=== PATIENT | male | born 1980 | race Caucasian/White ===

== ENCOUNTER 2019-08-11 15:05 | Inpatient (IN) | payer OTHER ==
[2019-08-11 15:32] VITALS: BMI 28.0
--- NOTE | 2019-08-11 15:57 | HP ---
COWS - Scale Resting Pulse: 0= [place] 80 or Below Sweatin= No chills or Flushing Restless Observation: 0= Sits Still Pupil Size: 0= Normal to Room Light Bone or Joint Aches: 0= None Runny Nose/ Eye Tearin= None GI Upset > 30mins: 0= None Tremor Observation: 0= None Yawning Observation: 0= None Anxiety or Irritability: 0= None Goose Flesh Skin: 0=Smooth Skin COWS Score: 0 CIWA Score - Admission Criteria OASAS Guidelines: Admission for Medically Managed Detox: Requires at least one of the followin. CIWA greater than 12 2. Seizures within the past 24 hours 3. Delirium tremens within the past 24 hours 4. Hallucinations within the past 24 hours 5. Acute intervention needed for co occurring medical disorder 6. Acute intervention needed for co occurring psychiatric disorder 7. Severe withdrawal that cannot be handled at a lower level of care (continued vomiting, continued diarrhea, abnormal vital signs) requiring intravenous medication and/or fluids 8. Admitting History and Physical - Admission Chief Complaint: "I want to learn how help myself and not be my worst enemy and stop being self-destructive." History of Present Illness: 39 year old male with history of heroin use and crack/cocaine use disorder. One week ago he overdose on 1 bag of heroin which he mixed with crystal meth. He is using up to $200 per day of crack and cocaine. S/P residential released 2017 and released from [facility] 07/2019. All: Keflex He has poor insight, is homeless, needs supportive environment, has poor judgment and needs intensive counseling services. He needs the supportive environment of a rehab setting. PMH: None Psurg: None Psych: Depression, Bipolar and PTSD. History Source: Patient Limitations to Obtaining History: No Limitations - Smoking History Smoking history: Current every day smoker Aproximately how many cigarettes per day: 10 Admission ROS S - HPI Allergies/Adverse Reactions: Allergies Allergy/AdvReac Type Severity Reaction Status Date / Time cephalexin [From Keflex] Allergy Severe Verified 08/11/19 15:41 Exam Limitations: No Limitations - Ebola screening Have you traveled outside of the country in the last 21 days: No Have you had contact with anyone from an Ebola affected area: No Have you been sick,other than usual withdrawal symptoms: No Do you have a fever: No - Review of Systems Constitutional: No Symptoms Reported EENT: reports: No Symptoms Reported Respiratory: reports: No Symptoms reported Cardiac: reports: No Symptoms Reported GI: reports: No Symptoms Reported : reports: No Symptoms Reported Musculoskeletal: reports: No Symptoms Reported Integumentary: reports: No Symptoms Reported Neuro: reports: No Symptoms reported Endocrine: reports: No Symptoms Reported Hematology: reports: No Symptoms Reported Psychiatric: reports: Judgement Intact, Mood/Affect Appropiate, Orientated x3 Patient History - Patient Medical History Hx Asthma: Yes (Pt is on MDI) Hx Chronic Obstructive Pulmonary Disease (COPD): No Hx Cardiac Disorders: No Hx Hypertension: No Hx Seizures: No Hx Diabetes: No Hx Gastrointestinal Disorders: No Hx Genitourinary Disorders: No Hx Sexually Transmitted Disorders: No Hx Renal Disease (ESRD): No Hx Depression: Yes Hx Suicide Attempt: Yes (Pt swallowed a razor blade 6 yrs ago.) Hx Schizophrenia: No - Patient Surgical History Past Surgical History: Yes Hx Genitourinary Surgery: Yes (Sx for urethral stricture) Other Surgical History: Pt had sx Anesthesia Reaction: No - PPD History Previous Implant?: Yes Documented Results: Negative w/o proof Implanted On Prior R Admission?: No - Smoking Cessation Smoking history: Current every day smoker Aproximately how many cigarettes per day: 10 Hx Chewing Tobacco Use: No Initiated information on smoking cessation: Yes 'Breaking Loose' booklet given: 08/11/19 - Substances abused Cocaine Substance route: Injection Frequency: Daily Amount used: 2 grams Age of first use: 15 Date of last use: 08/08/19 Crack Substance route: Smoking Frequency: Daily Amount used: $300 Age of first use: 15 Date of last use: 08/08/19 Heroin Substance route: Injection Frequency: Daily Amount used: 1-2 bags Age of first use: 15 Date of last use: 08/06/19 Admission Physical Exam BHS - Vital Signs Vital Signs: Vital Signs - 24 hr 08/11/19 15:19 Temperature 97.1 F L Pulse Rate 85 Respiratory 18 Rate Blood Pressure 151/86 - Physical General Appearance: Yes: No Apparent Distress, Nourished, Appropriately Dressed HEENTM: Yes: EOMI, Hearing grossly Normal, Normal ENT Inspection, Normocephalic , Normal Voice, CARMENZA, Pharynx Normal, Tm's normal Respiratory: Yes: Chest Non-Tender, Lungs Clear, Normal Breath Sounds, No Respiratory Distress, No Accessory Muscle Use Neck: Yes: No masses,lesions,Nodules, Supple, Trachea in good position Breast: Yes: Within Normal Limits Cardiology: Yes: Regular Rhythm, Regular Rate, S1, S2 Abdominal: Yes: Normal Bowel Sounds, Non Tender, Flat, Soft Genitourinary: Yes: Within Normal Limits Back: Yes: Normal Inspection Musculoskeletal: Yes: full range of Motion, Gait Steady, Pelvis Stable Extremities: Yes: Normal Capillary Refill, Normal Inspection Neurological: Yes: crew member II-XII NML intact, Fully Oriented, Alert, Motor Strength 5/5, Normal Mood/Affect, Normal Response Integumentary: Yes: Normal Color, Warm Lymphatic: Yes: Within Normal Limits - Diagnostic (1) Opioid dependence Current Visit: Yes Status: Acute (2) Cocaine use disorder Current Visit: Yes Status: Acute Cleared for Admission S - Detox or Rehab [facility] Level of Care: Medically Supervised Detox Regimen/Protocol: Not Applicable Claeared for Rehab Admission: Yes Screened but not Admitted - Documentation of Visit Screened but not Admitted: No Breathalyzer - Breathalyzer Breathalyzer: 0 Urine Drug Screen - Test Device Lot number: [id number] Expiration date: 06/03/21 - Control Is test valid?: Yes - Results Drug screen NEGATIVE: No Urine drug screen results: JASON-Cocaine, BUP-Suboxone Inpatient Rehab Admission - Rehab Decision to Admit Inpatient rehab admission?: Yes - Initial Determination Are CD services needed?: Yes Free of communicable disease: Yes Not in need of hospitalization: Yes - Rehab Admission Criteria Previous failed treatment: Yes Poor recovery environment: Yes Comorbidities: Yes Lacks judgement: Yes Patient is meeting Inpatient Rehab admission criteria:: Yes
[2019-08-11] MEDS ORDERED: MAGNESIUM HYDROX 2400MG/30ML ORAL SUSPENSION 30 ML CUP PO PRN (15:59)
[2019-08-11] MEDS ORDERED: MAGNESIUM CITRATE 300 ML BOTTLE PO PRN (15:59)
[2019-08-11] MEDS ORDERED: MENTHOL/PHENOL 1 EACH UD MM PRN (15:59)
[2019-08-11] MEDS ORDERED: ACETAMINOPHEN 325 MG TABLET (FP) PO PRN (15:59)
[2019-08-11] MEDS ORDERED: P-EPHED 60MG/TRIPROLIDI 2.5MG TABLET PO PRN (15:59)
[2019-08-11] MEDS ORDERED: LOPERAMIDE HCL 2 MG CAPSULE PO PRN (15:59)
[2019-08-11] MEDS ORDERED: IBUPROFEN 400 MG TABLET (FP) PO PRN (15:59)
[2019-08-11] MEDS ORDERED: guaiFENesin 200 MG/10 ML 10 ML UNIT-DOSE CUPS PO PRN (15:59)
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
[2019-08-11] MEDS: THIAMINE HCL 100 MG TABLET (FP) PO SCH (21:42)
[2019-08-11] MEDS: MELATONIN 5 MG TABLETS PO PRN (21:42)
[2019-08-12 09:53] LABS: HEMOGLOBIN 15.5 GM/dL (11.7-16.9); MCH 29.9 pg (25.7-33.7); MCHC 34.4 g/dl (32.0-35.9); MEAN PLT VOLUME 7.6 fl (7.5-11.1); PLATELET COUNT 374 K/MM3 (134-434); RBC 5.18 M/mm3 (4.00-5.60); RDW 13.3 % (11.9-15.9); WHITE BLOOD COUNT 8.4 K/mm3 (4.0-10.0)
[2019-08-12] MEDS: PRENATAL VITAMINS W/ FOLIC ACID TABLET (FP) PO SCH (09:57)
[2019-08-12] MEDS: ARIPiprazole 10 MG TABLET PO SCH (09:57)
[2019-08-12] MEDS: FLUoxetine HCL 20 MG CAPSULE PO SCH (09:57)
[2019-08-12 10:03] LABS: ALBUMIN 3.6 g/dl (3.4-5.0); BILIRUBIN,TOTAL 0.3 mg/dL (0.2-1); BLOOD UREA NITROGEN 14.7 mg/dL (7-18); CALCIUM 8.6 mg/dL (8.5-10.1); POTASSIUM 4.7 mmol/L (3.5-5.1); TOT PROT 6.7 g/dl (6.4-8.2)
[2019-08-12 20:51] LABS: URINE APPEARANCE CLEAR; URINE BILIRUBIN NEGATIVE (NEGATIVE); URINE COLOR YELLOW; URINE GLUCOSE (UA) NEGATIVE (NEGATIVE); URINE KETONE TRACE (NEGATIVE); URINE LEUK ESTERASE NEGATIVE (NEGATIVE); URINE NITRITE NEGATIVE (NEGATIVE); URINE PROTEIN NEGATIVE (NEGATIVE); URINE UROBILINOGEN 0.2 mg/dL (0.2-1.0)
[2019-08-12] MEDS: THIAMINE HCL 100 MG TABLET (FP) PO SCH (21:11)
[2019-08-13] MEDS: ARIPiprazole 10 MG TABLET PO SCH (09:40)
[2019-08-13] MEDS: PRENATAL VITAMINS W/ FOLIC ACID TABLET (FP) PO SCH (09:40)
[2019-08-13] MEDS: FLUoxetine HCL 20 MG CAPSULE PO SCH (09:40)
[2019-08-13] MEDS: THIAMINE HCL 100 MG TABLET (FP) PO SCH (21:08)
[2019-08-13] MEDS: MELATONIN 5 MG TABLETS PO PRN (21:08)
[2019-08-14] MEDS: PRENATAL VITAMINS W/ FOLIC ACID TABLET (FP) PO SCH (10:35)
[2019-08-14] MEDS: FLUoxetine HCL 20 MG CAPSULE PO SCH ×2 (10:35→21:00)
[2019-08-14] MEDS: ARIPiprazole 10 MG TABLET PO SCH ×2 (10:35→21:00)
--- NOTE | 2019-08-14 10:56 | PN ---
[facility] Progress Note Note: Patient is currently on Abiify 10 mg/day and Prozac 20 mg/day. he requests to take both medications at bedtime. Therefore Prozac and Abilify schedule is switched to HS
[2019-08-14] MEDS: THIAMINE HCL 100 MG TABLET (FP) PO SCH (21:00)
[2019-08-15] MEDS: PRENATAL VITAMINS W/ FOLIC ACID TABLET (FP) PO SCH (10:37)
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
--- NOTE | 2019-08-15 12:17 | PN ---
[facility] COWS - Scale Resting Pulse: 0= [place] 80 or Below Sweatin=Flushed/Facial Moisture Restless Observation: 0= Sits Still Pupil Size: 0= Normal to Room Light Bone or Joint Aches: 1= Mild Discomfort Runny Nose/ Eye Tearin= Runny Nose/Eyes GI Upset > 30mins: 0= None Tremor Observation of Outstretched Hands: 0= None Yawning Observation: 0= None Anxiety or Irritability: 1=Feels Anxious/Irritable Goose Flesh Skin: 0=Smooth Skin COWS Score: 6 BHS Progress Note (SOAP) Subjective: Pt c/o withdrawals from suboxone x 2 weeks. Pt states he was buying it on the street after his insurance was cut off. afraid did not want to OD like he did in the bathroom of his [facility] sometime ago after using heroin laced with Fentanyl. Reports hot and cold chills, nasal congestions/runny nose. Below is verification from [employer]: Others' Prescriptions Patient Name: Jose Lo Date: 1980 Address: [address] [address] Sex: Male Rx Written Rx Dispensed Drug Quantity Days Supply Prescriber Name 01/24/2019 01/24/2019 suboxone 8 mg-2 mg sl film 90 30 Wild Villar ([place]) 11/01/2018 11/02/2018 suboxone 8 mg-2 mg sl film 42 14 Wild Villar ([place]) 10/18/2018 10/18/2018 dextroamp-amphetamin 10 mg tab 60 30 Elzbieta Garcia MD 10/18/2018 10/18/2018 suboxone 8 mg-2 mg sl film 42 14 Wild Villar ([place]) 09/20/2018 09/20/2018 suboxone 8 mg-2 mg sl film 90 30 Wild Villar (RAJI) 09/09/2018 09/09/2018 suboxone 8 mg-2 mg sl film 30 10 Vance Bautista MD Patient Name: Jose Lo Date: 1980 Address: [address], [place] [address] Sex: Male Rx Written Rx Dispensed Drug Quantity Days Supply Prescriber Name 09/07/2018 09/08/2018 suboxone 8 mg-2 mg sl film 3 1 Michele Schaefer F () * - Drugs marked with an asterisk are compound drugs. If the compound drug is made up of more than one controlled substance, then each controlled substa Objective: 08/15/19 12:22 Vital Signs - 24 hr 08/15/19 08/15/19 08/15/19 00:30 03:30 06:48 Temperature 97.6 F Pulse Rate 75 Respiratory 18 18 18 Rate Blood Pressure 120/76 Assessment: 08/15/19 12:22 CESAR Pt with hx of Suboxone treatment wants to restart Plan: D/w pt's counselor Ms He Velasoc who has seen pt and is arranging for pt to follow up with CD aftercare as well as Suboxone-MAT at [facility] program. Repeat UDS today consider restarting Suboxone with 2 mg/0.1mg s/l first dose x 1 now Re-evaluate and build up suboxone dose as approriate. Give suboxone 4 mg/1 mg sl BID starting tomorrow. Pt is agreeable to poc
[2019-08-15] MEDS ORDERED: BUPRENORPHINE/NALOXONE 2 MG/0.5 MG FILM PACKET SL ONE ×2 (14:00→18:00)
[2019-08-15] MEDS: ARIPiprazole 10 MG TABLET PO SCH (21:41)
[2019-08-15] MEDS: FLUoxetine HCL 20 MG CAPSULE PO SCH (21:41)
[2019-08-15] MEDS: THIAMINE HCL 100 MG TABLET (FP) PO SCH (21:42)
[2019-08-16] MEDS: BUPRENORPHINE/NALOXONE 4 MG/1 MG FILM PACKET SL SCH ×2 (06:05→17:09)
[2019-08-16] MEDS: PRENATAL VITAMINS W/ FOLIC ACID TABLET (FP) PO SCH (10:27)
[2019-08-16] MEDS: FLUoxetine HCL 20 MG CAPSULE PO SCH (21:10)
[2019-08-16] MEDS: ARIPiprazole 10 MG TABLET PO SCH (21:10)
[2019-08-16] MEDS: THIAMINE HCL 100 MG TABLET (FP) PO SCH (21:10)
[2019-08-17] MEDS: BUPRENORPHINE/NALOXONE 4 MG/1 MG FILM PACKET SL SCH ×2 (06:04→17:36)
[2019-08-17] MEDS: PRENATAL VITAMINS W/ FOLIC ACID TABLET (FP) PO SCH (09:37)
[2019-08-17] MEDS: ARIPiprazole 10 MG TABLET PO SCH (21:23)
[2019-08-17] MEDS: FLUoxetine HCL 20 MG CAPSULE PO SCH (21:23)
[2019-08-17] MEDS: THIAMINE HCL 100 MG TABLET (FP) PO SCH (21:23)
[2019-08-18] MEDS: BUPRENORPHINE/NALOXONE 4 MG/1 MG FILM PACKET SL SCH ×2 (06:05→17:43)
[2019-08-18] MEDS: PRENATAL VITAMINS W/ FOLIC ACID TABLET (FP) PO SCH (09:39)
[2019-08-18] MEDS ORDERED: TUBERCULIN PPD 5 TU/0.1ML VIAL ID ONE (18:09)
[2019-08-18] MEDS: ARIPiprazole 10 MG TABLET PO SCH (21:06)
[2019-08-18] MEDS: FLUoxetine HCL 20 MG CAPSULE PO SCH (21:06)
[2019-08-18] MEDS: THIAMINE HCL 100 MG TABLET (FP) PO SCH (21:06)
--- NOTE | 2019-08-18 22:55 | PN ---
[facility] Progress Note Note: Pt c/o painful sores inside nasal passage. Vital Signs - 24 hr 08/18/19 08/18/19 00:30 07:08 Temperature 97.6 F Pulse Rate 75 Respiratory 18 18 Rate Blood Pressure 123/70 Alert o x 3 nad oob ambulating with steady gait Nose:external, free of lesions;nasal passage, pink mm. A/P cold sores Saline spray as directed Bacitracin ointment apply as directed
[2019-08-18] MEDS ORDERED: SODIUM CHLORIDE NASAL SPRAY 44 ML BOTTLE NS PRN (22:56)
[2019-08-19] MEDS: BUPRENORPHINE/NALOXONE 4 MG/1 MG FILM PACKET SL SCH ×2 (06:00→17:51)
[2019-08-19] MEDS: BACITRACIN 15 GM TUBE TOPICAL OINTMENT TP SCH ×2 (10:07→21:47)
[2019-08-19] MEDS: PRENATAL VITAMINS W/ FOLIC ACID TABLET (FP) PO SCH (10:08)
[2019-08-19] MEDS: ARIPiprazole 10 MG TABLET PO SCH (21:47)
[2019-08-19] MEDS: FLUoxetine HCL 20 MG CAPSULE PO SCH (21:47)
[2019-08-19] MEDS: THIAMINE HCL 100 MG TABLET (FP) PO SCH (21:47)
[2019-08-20] MEDS: BUPRENORPHINE/NALOXONE 4 MG/1 MG FILM PACKET SL SCH ×2 (06:05→17:48)
[2019-08-20] MEDS: PRENATAL VITAMINS W/ FOLIC ACID TABLET (FP) PO SCH (10:25)
[2019-08-20] MEDS: BACITRACIN 15 GM TUBE TOPICAL OINTMENT TP SCH ×2 (10:25→21:05)
[2019-08-20] MEDS: ARIPiprazole 10 MG TABLET PO SCH (21:04)
[2019-08-20] MEDS: FLUoxetine HCL 20 MG CAPSULE PO SCH (21:04)
[2019-08-20] MEDS: THIAMINE HCL 100 MG TABLET (FP) PO SCH (21:05)
[2019-08-21] MEDS: BUPRENORPHINE/NALOXONE 4 MG/1 MG FILM PACKET SL SCH ×2 (06:09→17:50)
[2019-08-21] MEDS: PRENATAL VITAMINS W/ FOLIC ACID TABLET (FP) PO SCH (09:32)
[2019-08-21] MEDS: BACITRACIN 15 GM TUBE TOPICAL OINTMENT TP SCH ×2 (09:32→21:11)
[2019-08-21] MEDS: ARIPiprazole 10 MG TABLET PO SCH (21:11)
[2019-08-21] MEDS: FLUoxetine HCL 20 MG CAPSULE PO SCH (21:11)
[2019-08-21] MEDS: THIAMINE HCL 100 MG TABLET (FP) PO SCH (21:11)
[2019-08-22] MEDS ORDERED: BUPRENORPHINE/NALOXONE 2 MG/0.5 MG FILM PACKET SL SCH (06:35)
[2019-08-22] MEDS: BUPRENORPHINE/NALOXONE 4 MG/1 MG FILM PACKET SL SCH ×2 (06:44→18:05)
[2019-08-22] MEDS: BACITRACIN 15 GM TUBE TOPICAL OINTMENT TP SCH ×2 (11:00→22:18)
[2019-08-22] MEDS: PRENATAL VITAMINS W/ FOLIC ACID TABLET (FP) PO SCH (11:00)
[2019-08-22] MEDS: MAG HYDROX/AL HYDROX/SIMETH 30 ML UNIT-DOSE CUP PO PRN ×2 (12:21→22:18)
[2019-08-22] MEDS: FLUoxetine HCL 20 MG CAPSULE PO SCH (21:14)
[2019-08-22] MEDS: ARIPiprazole 10 MG TABLET PO SCH (21:14)
[2019-08-22] MEDS: THIAMINE HCL 100 MG TABLET (FP) PO SCH (21:15)
[2019-08-23] MEDS: MAG HYDROX/AL HYDROX/SIMETH 30 ML UNIT-DOSE CUP PO PRN (05:08)
[2019-08-23] MEDS: BUPRENORPHINE/NALOXONE 4 MG/1 MG FILM PACKET SL SCH ×2 (06:08→17:37)
[2019-08-23] MEDS: BACITRACIN 15 GM TUBE TOPICAL OINTMENT TP SCH ×2 (10:12→21:22)
[2019-08-23] MEDS: PRENATAL VITAMINS W/ FOLIC ACID TABLET (FP) PO SCH (10:12)
--- NOTE | 2019-08-23 10:41 | PN ---
[facility] Progress Note Note: nurse Dayami reports that this pt c/o n/v last night but no vomit observed. Vital Signs - 24 hr 08/23/19 06:45 Temperature 97.8 F Pulse Rate 76 Respiratory 18 Rate Blood Pressure 128/69 Zofran 8mg ODT Q8H prn for nausea or vomiting.
[2019-08-23] MEDS: FLUoxetine HCL 20 MG CAPSULE PO SCH (21:22)
[2019-08-23] MEDS: ARIPiprazole 10 MG TABLET PO SCH (21:22)
[2019-08-23] MEDS: THIAMINE HCL 100 MG TABLET (FP) PO SCH (21:22)
[2019-08-23] MEDS: ONDANSETRON *ODT* 4 MG TABLET SL PRN (21:29)
[2019-08-24] MEDS: BUPRENORPHINE/NALOXONE 4 MG/1 MG FILM PACKET SL SCH ×2 (07:20→17:30)
[2019-08-24] MEDS: PRENATAL VITAMINS W/ FOLIC ACID TABLET (FP) PO SCH (10:00)
[2019-08-24] MEDS: BACITRACIN 15 GM TUBE TOPICAL OINTMENT TP SCH ×2 (10:00→22:25)
[2019-08-24] MEDS: FLUoxetine HCL 20 MG CAPSULE PO SCH (21:12)
[2019-08-24] MEDS: ARIPiprazole 10 MG TABLET PO SCH (21:12)
[2019-08-24] MEDS: THIAMINE HCL 100 MG TABLET (FP) PO SCH (22:26)
[2019-08-25] MEDS: BUPRENORPHINE/NALOXONE 4 MG/1 MG FILM PACKET SL SCH (08:03)
[2019-08-25] MEDS: BACITRACIN 15 GM TUBE TOPICAL OINTMENT TP SCH ×2 (10:17→21:08)
[2019-08-25] MEDS: PRENATAL VITAMINS W/ FOLIC ACID TABLET (FP) PO SCH (10:17)
--- NOTE | 2019-08-25 11:08 | PN ---
[facility] Progress Note Note: Pt Refused to take his scheduled Suboxone dose this morning stating that he wants to get off of everything, "be clean when I leave here and "was not actively using heroin before coming here". Reports today that he "bought 8 mg subox[address] on the streets to edge off" and does not want to continue Suboxone MAT. Declined a taper to 2 mg/0.5 mg stating "I've been on 24 mg daily when i was in long term and got off suboxone with no problem". "Just discontinue it". Vital Signs - 24 hr 08/25/19 08/25/19 08/25/19 00:30 03:30 07:02 Temperature 97.7 F Pulse Rate 73 Respiratory 18 18 18 Rate Blood Pressure 127/73 Laboratory Tests 08/12/19 08/12/19 08/12/19 07:30 07:30 07:30 WBC 8.4 RBC 5.18 Hgb 15.5 Hct 45.0 MCV 87.0 MCH 29.9 MCHC 34.4 RDW 13.3 Plt Count 374 MPV 7.6 Sodium 139 Potassium 4.7 Chloride 105 Carbon Dioxide 32 Anion Gap 2 L BUN 14.7 Creatinine 1.0 Est GFR (CKD-EPI)AfAm 110.17 Est GFR (CKD-EPI)NonAf 95.05 Random Glucose 87 Calcium 8.6 Total Bilirubin 0.3 AST 12 L ALT 23 Alkaline Phosphatase 113 Total Protein 6.7 Albumin 3.6 Urine Color Urine Appearance Urine pH Ur Specific [place] Urine Protein Urine Glucose (UA) Urine Ketones Urine Blood Urine Nitrite Urine Bilirubin Urine Urobilinogen Ur Leukocyte Esterase RPR Titer Nonreactive 08/12/19 11:50 WBC RBC Hgb Hct MCV MCH MCHC RDW Plt Count MPV Sodium Potassium Chloride Carbon Dioxide Anion Gap BUN Creatinine Est GFR (CKD-EPI)AfAm Est GFR (CKD-EPI)NonAf Random Glucose Calcium Total Bilirubin AST ALT Alkaline Phosphatase Total Protein Albumin Urine Color Yellow Urine Appearance Clear Urine pH 5.0 Ur Specific [place] 1.029 Urine Protein Negative Urine Glucose (UA) Negative Urine Ketones Trace H Urine Blood Negative Urine Nitrite Negative Urine Bilirubin Negative Urine Urobilinogen 0.2 Ur Leukocyte Esterase Negative RPR Titer Alert o x 3 nad oob ambulating with steady gait A/P pt declined to continue Suboxone MAT. D/C Suboxone 4 mg/1mg sl BID per pt's request.
[2019-08-25] MEDS: FLUoxetine HCL 20 MG CAPSULE PO SCH (21:07)
[2019-08-25] MEDS: ARIPiprazole 10 MG TABLET PO SCH (21:07)
[2019-08-25] MEDS: THIAMINE HCL 100 MG TABLET (FP) PO SCH (21:08)
[2019-08-26] MEDS: MAG HYDROX/AL HYDROX/SIMETH 30 ML UNIT-DOSE CUP PO PRN ×2 (00:44→17:36)
[2019-08-26] MEDS: ONDANSETRON *ODT* 4 MG TABLET SL PRN (06:28)
[2019-08-26] MEDS: PRENATAL VITAMINS W/ FOLIC ACID TABLET (FP) PO SCH (09:51)
[2019-08-26] MEDS: BACITRACIN 15 GM TUBE TOPICAL OINTMENT TP SCH ×2 (09:51→21:12)
[2019-08-26] MEDS: THIAMINE HCL 100 MG TABLET (FP) PO SCH (21:11)
[2019-08-26] MEDS: ARIPiprazole 10 MG TABLET PO SCH (21:12)
[2019-08-26] MEDS: FLUoxetine HCL 20 MG CAPSULE PO SCH (21:12)
[2019-08-27] MEDS: BACITRACIN 15 GM TUBE TOPICAL OINTMENT TP SCH ×2 (09:33→23:17)
[2019-08-27] MEDS: PRENATAL VITAMINS W/ FOLIC ACID TABLET (FP) PO SCH (09:33)
[2019-08-27] MEDS: FLUoxetine HCL 20 MG CAPSULE PO SCH (21:23)
[2019-08-27] MEDS: THIAMINE HCL 100 MG TABLET (FP) PO SCH (21:23)
[2019-08-27] MEDS: ARIPiprazole 10 MG TABLET PO SCH (21:23)
[2019-08-28] MEDS: PRENATAL VITAMINS W/ FOLIC ACID TABLET (FP) PO SCH (12:30)
[2019-08-28] MEDS: BACITRACIN 15 GM TUBE TOPICAL OINTMENT TP SCH ×2 (12:30→21:07)
[2019-08-28] MEDS: ARIPiprazole 10 MG TABLET PO SCH (21:06)
[2019-08-28] MEDS: FLUoxetine HCL 20 MG CAPSULE PO SCH (21:07)
[2019-08-28] MEDS: THIAMINE HCL 100 MG TABLET (FP) PO SCH (21:07)
[2019-08-29 07:07] VITALS: BP 129/79; PULSE 74; TEMP 98.5
[2019-08-29] MEDS: PRENATAL VITAMINS W/ FOLIC ACID TABLET (FP) PO SCH (10:26)
[2019-08-29] MEDS: BACITRACIN 15 GM TUBE TOPICAL OINTMENT TP SCH (10:26)
--- NOTE | 2019-08-29 11:23 | DS ---
[facility] Rehab Discharge Summary - [facility] Rehab Discharge Summary Admission Date: 08/11/19 Discharge Date: 08/29/19 - History Present History: Cocaine dependence, Opioid dependence Additional Comments: Pt is a 39 y/o male with a hx of CESAR admitted to rehab and requests early discharge today stating "I'm ready to leave today". Pt met with his counselor, Ms He Velasco to arrange for CD aftercare. Pt was referred to [place], [place]. Pt reports he has no current primary care provider and has been recommended to follow up with [facility] Dr. Huan Gore [facility] in the [place], [place]. Pertinent Past History: Asthma S/p Sx for Urethral stricture Depression - Discharge Physical Exam Vital Signs: Vital Signs Temperature 98.5 F 08/29/19 07:07 Pulse Rate 74 08/29/19 07:07 Respiratory Rate 16 08/29/19 07:07 Blood Pressure 129/79 08/29/19 07:07 O2 Sat by Pulse Oximetry (%) Pertinent Admission Physical Exam Findings: Laboratory Tests 08/12/19 08/12/19 08/12/19 07:30 07:30 07:30 WBC 8.4 RBC 5.18 Hgb 15.5 Hct 45.0 MCV 87.0 MCH 29.9 MCHC 34.4 RDW 13.3 Plt Count 374 MPV 7.6 Sodium 139 Potassium 4.7 Chloride 105 Carbon Dioxide 32 Anion Gap 2 L BUN 14.7 Creatinine 1.0 Est GFR (CKD-EPI)AfAm 110.17 Est GFR (CKD-EPI)NonAf 95.05 Random Glucose 87 Calcium 8.6 Total Bilirubin 0.3 AST 12 L ALT 23 Alkaline Phosphatase 113 Total Protein 6.7 Albumin 3.6 Urine Color Urine Appearance Urine pH Ur Specific [place] Urine Protein Urine Glucose (UA) Urine Ketones Urine Blood Urine Nitrite Urine Bilirubin Urine Urobilinogen Ur Leukocyte Esterase RPR Titer Nonreactive 08/12/19 11:50 WBC RBC Hgb Hct MCV MCH MCHC RDW Plt Count MPV Sodium Potassium Chloride Carbon Dioxide Anion Gap BUN Creatinine Est GFR (CKD-EPI)AfAm Est GFR (CKD-EPI)NonAf Random Glucose Calcium Total Bilirubin AST ALT Alkaline Phosphatase Total Protein Albumin Urine Color Yellow Urine Appearance Clear Urine pH 5.0 Ur Specific [place] 1.029 Urine Protein Negative Urine Glucose (UA) Negative Urine Ketones Trace H Urine Blood Negative Urine Nitrite Negative Urine Bilirubin Negative Urine Urobilinogen 0.2 Ur Leukocyte Esterase Negative RPR Titer - Treatment Discharge Condition: Discharge condition good - Medication Discharge Medications: Ambulatory Orders Aripiprazole [Abilify -] 10 mg PO DAILY 08/11/19 Fluoxetine HCl [Prozac -] 20 mg PO DAILY 08/11/19 - Medication-Assisted Treatment (MAT) Medication-Assisted Treatment (MAT): No - Discharge Instructions Diet, activity, other medical instructions: Diet:Regular Activity: oob ad trevor Other medical instructions:follow up with CD aftercare with [facility] as scheduled. Follow up with primary care with [facility] as recommended and scheduled on 09/08/19 @ 11:00. - Diagnosis (1) Cocaine use disorder Current Visit: Yes Status: Chronic (2) Opioid dependence Current Visit: Yes Status: Chronic Qualifiers: Substance use status: uncomplicated Qualified Code(s): F11.20 - Opioid dependence, uncomplicated - Follow-up Referral Minutes to complete discharge: 25 - AMA Did Patient Leave Against Medical Advice: No
== END 2019-08-29 13:10 | disposition home or self-care (01) | DRG 772 ==
LOC: YASAS 15:05 → Y5N 15:50
PROVIDERS: ADMIT Allergy & Immunology; ATTEND Allergy & Immunology
PROC: HZ42ZZZ Group Counseling for Substance Abuse Treatment, Cognitive-Behavioral (ICD-10-PCS; principal; 2019-08-11)
DX: F11.20 Opioid dependence, uncomplicated (principal); F14.10 Cocaine abuse, uncomplicated; F17.210 Nicotine dependence, cigarettes, uncomplicated; F25.9 Schizoaffective disorder, unspecified; F31.81 Bipolar II disorder; F43.10 Post-traumatic stress disorder, unspecified; J45.909 Unspecified asthma, uncomplicated; Z91.410 Personal history of adult physical and sexual abuse; Z91.5 Personal history of self-harm; Z59.0 Homelessness
CPT/HCPCS: 36415; 80053; 81003; 85027; 86593; Q0162